=== PATIENT | female | born 2000 | race Caucasian/White ===

== ENCOUNTER 2022-01-18 22:57 | Observation (INO) | payer OTHER ==
[2022-01-19] MEDS ORDERED: Piperacillin/Tazobactam 3.375 GM VIAL ONE (00:11)
[2022-01-19] MEDS ORDERED: Acetaminophen 325 MG TAB PO PRN (00:17)
[2022-01-19] MEDS ORDERED: Ondansetron PF 4 MG/2 ML Vial IVP PRN (00:17)
[2022-01-19] MEDS ORDERED: Ondansetron ODT 4 MG TAB PO PRN (00:17)
[2022-01-19 00:18] LABS: ALT (SGPT) 12 U/L (8-55); AST (SGOT) 21 U/L (5-34); Alkaline Phosphatase 54 U/L (40-110); Anion Gap 12 mmol/L (10-20); BUN (Urea Nitrogen) 13 mg/dL (7.0-18.7); Bilirubin, Total 0.4 mg/dL (0.2-1.2); Calc. Creatinine Clearance 0 mL/min (70-130); Calcium 9.3 mg/dL (7.8-10.44); Carbon Dioxide 23 mmol/L (22-29); Chloride 109 mmol/L (98-107); Globulin 3.3 g/dL (2.4-3.5); Glucose 89 mg/dL (70-105); Potassium 3.9 mmol/L (3.5-5.1); Protein, Total 7.3 g/dL (6.0-8.3); Sodium 140 mmol/L (136-145)
[2022-01-19 00:32] LABS: #Basophils 0.1 10x3/uL (0.0-0.2); #Eosinphils 0.2 10x3/uL (0.0-0.5); #Monocytes 0.9 10x3/uL (0.0-1.1); #Neutrophils 5.1 10x3/uL (1.5-8.4); %Basophils 0.8 % (0.0-2.0); %Lymphocytes 26.1 % (18.0-47.0); %Neutrophils 59.9 % (40.0-75.0); Hemoglobin 12.3 g/dL (12.0-15.5); Mean Corpuscular HGB CONC 34.7 g/dL (32.0-36.0); Mean Corpuscular Hemoglobin 31.1 pg (27.0-33.0); Mean Corpuscular Volume 89.4 fl (81.6-98.3); Mean Platelet Volume 9.2 fl (7.4-10.4); Platelet Count 444 10x3/uL (150-450); RBC Distribution Width 13.4 % (11.5-14.5); Red Blood Cell (RBC) Count 3.96 10x6/uL (3.90-5.03); White Blood Cell (WBC) Count 8.5 10x3/uL (3.5-10.5)
[2022-01-19 02:19] VITALS: BMI 26.2
[2022-01-19] MEDS: Sodium Chloride 0.9% 1,000 ML IV SCH ×2 (02:26→13:20)
[2022-01-19] MEDS ORDERED: Acetaminophen 500 MG TAB PO PRN (02:30)
[2022-01-19] MEDS: Piperacillin/Tazobactam 3.375 GM in Sodium Chloride 0.9% 100 ML IVPB SCH ×2 (04:56→14:19)
[2022-01-19] MEDS ORDERED: Piperacillin/Tazobactam 4.5 GM in Sodium Chloride 0.9% 100 ML IVPB SCH (06:00)
[2022-01-19 10:35] LABS: SARS-CoV-2 NAA Rapid Test Not Detected (NotDetected)
[2022-01-19] MEDS ORDERED: Lidocaine 1% PF 5 ML VIAL ONE (16:09)
[2022-01-19] MEDS ORDERED: Fentanyl 100 MCG/2 ML VIAL ONE (16:09)
[2022-01-19] MEDS ORDERED: PROPOFOL 20 ML ONE (16:09)
[2022-01-19] MEDS ORDERED: Rocuronium Bromide 10 MG/ML (10ML VIAL) ONE (16:09)
[2022-01-19] MEDS ORDERED: Succinylcholine 200 MG/10 ml SYRINGE FS ONE (16:09)
[2022-01-19] MEDS ORDERED: Ondansetron PF 4 MG/2 ML Vial ONE (16:09)
[2022-01-19] MEDS ORDERED: Famotidine/PF 20 mg/2ml Vial ONE (16:18)
[2022-01-19] MEDS ORDERED: Midazolam HCl 2 mg/2 ml Vial ONE (16:18)
[2022-01-19] MEDS ORDERED: Dexamethasone 20 MG/5 ML VIAL ONE (16:33)
[2022-01-19] MEDS ORDERED: Meperidine HCl/PF 25 MG/ML VIAL ONE (16:42)
[2022-01-19] MEDS ORDERED: ePHEDrine Sulfate 50 MG/10 ML VIAL ONE (16:49)
[2022-01-19 21:48] VITALS: BP 120/68; TEMP 98.2
== END 2022-01-19 21:00 | disposition home or self-care (01) ==
LOC: CSHERS 22:57 → CSHPP 01-19 02:07
PROVIDERS: ADMIT Obstetrics & Gynecology; ATTEND Obstetrics & Gynecology
PROC: 10D17ZZ Extraction of Products of Conception, Retained, Via Natural or Artificial Opening (ICD-10-PCS; principal; 2022-01-19)
DX: O03.1 Delayed or excessive hemorrhage following incomplete spontaneous abortion (principal); O03.39 Incomplete spontaneous abortion with other complications; N89.8 Other specified noninflammatory disorders of vagina; Z20.822 Contact with and (suspected) exposure to COVID-19
CPT/HCPCS: 36415; 76856; 80053; 83605; 84702; 85025; 86900; 86901; 87040; 87070; 87205; 88305; 96365; G0378; J1100; J2175; J2250; J2405; J2543; J2704; J3010; J3490; J7050; S0028; U0002